=== PATIENT | female | born 1995 | race Two or more races ===

== ENCOUNTER → 2020-04-09 | Outpatient (REF) | payer OTHER ==
[~2020-04-09] MED LIST: FLAG500T PO; HYDR-3713 PO; PHEN15CA PO; TERB250T12
[2020-04-10 19:52] LABS: CHLAMYDIA DNA AMPLIFICATION NEGATIVE (NEGATIVE); GC DNA AMPLIFICATION NEGATIVE (NEGATIVE)
== END ==
LOC: M SFHCLERA 15:48
PROVIDERS: ATTEND Student in an Organized Health Care Education/Training Program
DX: R10.2 Pelvic and perineal pain (principal)

== ENCOUNTER 2020-04-10 14:44 | Emergency (ER) | payer OTHER, SELFPAY ==
[~2020-04-10] VITALS: Ht 149.9 cm; Wt 69.2 kg
[2020-04-10] MEDS ORDERED: TERB250T12 (14:53)
[2020-04-10] MEDS ORDERED: PHEN15CA PO (14:53)
[2020-04-10 16:08] LABS: BASO # 0.1 10^3/uL (0.0-0.2); BASO % 0.6 % (0.0-1.0); EOS # 0.1 10^3/uL (0.0-0.5); EOS % 1.3 % (0.0-3.0); HEMATOCRIT 47.2 % (36.0-47.0); HEMOGLOBIN 15.2 g/dl (12.0-15.5); LYMPH # 2.3 10^3/uL (1.5-5.0); LYMPH % 29.4 % (24.0-44.0); MEAN CORPUSCULAR HGB CONC 32.2 g/dl (32.0-36.5); MEAN CORPUSCULAR VOLUME 89.9 fl (80.0-96.0); MONO # 0.5 10^3/uL (0.0-0.8); MONO % 5.8 % (0.0-5.0); NEUTROPHILS # 4.8 10^3/uL (1.5-8.5); NEUTROPHILS % 62.6 % (36.0-66.0); PLATELET COUNT, AUTOMATED 261 10^3/uL (150-450); RED BLOOD COUNT 5.25 10^6/uL (4.00-5.40); WHITE BLOOD COUNT 7.7 10^3/uL (4.0-10.0)
--- OUTSIDE RECORDS SUMMARY | 2020-04-10 16:23 | CCD ---
Author Author [facility] Organization [facility] Address Unknown Phone Unavailable Care Team Providers Care Lens Assorter Name Role Phone Mya, Cinthia Unavailable PROBLEMS Type Condition ICD9-CM Code [id number] Code Onset Dates Condition S tatus W/U Status Risk SNOMED Code Notes Problem Body mass index [BMI]30.0-30.9, adult Z68.30 Ac tive confirmed 031073535 Problem Obesity, unspecified E66.9 Active confirmed [id number] ALLERGIES No Known Allergies ENCOUNTERS from 1994 to 2020-04-05 Encounter Location Date Provider Diagnosis [address] [address] Apr, Cinthia Roque IMMUNIZATIONS No Information SOCIAL HISTORY Tobacco Use: Social History Observation Description Date Details (start date - stop date) Never Smoker Sex Assigned At : Social History Observation Description Sex Assigned At Unknown Education: Question Answer Notes Level of Education: College Audit Question Answer Notes Total Score: 1 Interpretation: Alcohol Education Language: Question Answer Notes Languages spoken: Sami Congregational: Question Answer Notes Congregational 33 None Sexual Hx: Question Answer Notes Had sex in the last 12 months (vaginal, oral, or anal)? Yes LMP: 2017 Have you ever had an STD? No with Men only Use protection? No Drug and Alcohol Question Answer Notes Total Score: 0 Interpretation: No problems reported Tobacco Use: Question Answer Notes Are you a: never smoker REASON FOR REFERRAL No Information VITAL SIGNS No information MEDICATIONS Medication SIG (Take, Route, Frequency, Duration) Notes Start Da te End Date Status Phentermine HCl 15 MG 1 capsule Orally Once a day for 30 days Jan, Active Mirena Active Lamisil 250 MG 1 tablet with food Orally Once a day for 42 day( s) Apr, Active PROCEDURES No Information RESULTS No Results REASON FOR VISIT Pain MEDICAL (GENERAL) HISTORY Type Description Date Surgical History No know Surgical history Goals Section No Information Health Concerns No Information MEDICAL EQUIPMENT No Information MENTAL STATUS No Information FUNCTIONAL STATUS No Information ASSESSMENTS No Information PLAN OF TREATMENT Medication Medication Name Sig Start Date Stop Date Lamisil 250 MG 1 tablet with food Orally Once a day for 42 day( s) Apr, Insurance Providers Payer Name Payer Address Payer Phone Insured Name Patient Relati onship to Insured Coverage Start Date Coverage End Date [address] [phone] YENY OROZCO
--- OUTSIDE RECORDS SUMMARY | 2020-04-10 16:23 | CCD ---
Author Author [facility] Organization [facility] Address Unknown Phone Unavailable Support Name Relationship Address Phone YENY OROZCO Next Of Kin [address] [place] [address] YENY OROZCO E[place] [address] [place] [address] Unavailable Re-disclosure Warning The records that you are about to access may contain information from federally-assisted alcohol or drug abuse programs. If such information is present, then the following federally mandated warning applies: This information has been disclosed to you from records protected by federal confidentiality rules (42 CFR part 2). The federal rules prohibit you from making any further disclosure of this information unless further disclosure is expressly permitted by the written consent of the person to whom it pertains or as otherwise permitted by 42 CFR part 2. A general authorization for the release of medical or other information is NOT sufficient for this purpose. The Federal rules restrict any use of the information to criminally investigate or prosecute any alcohol or drug abuse patient.The records that you are about to access may contain highly sensitive health information, the redisclosure of which is protected by Article 27-F of the [facility] Public Health law. If you continue you may have access to information: Regarding HIV / AIDS; Provided by facilities licensed or operated by the [facility] Office of Mental Health; or Provided by the [facility] Office for People With Developmental Disabilities. If such information is present, then the following [facility] mandated warning applies: This information has been disclosed to you from confidential records which are protected by state law. State law prohibits you from making any further disclosure of this information without the specific written consent of the person to whom it pertains, or as otherwise permitted by law. Any unauthorized further disclosure in violation of state law may result in a fine or assisted sentence or both. A general authorization for the release of medical or other information is NOT sufficient authorization for further disc losure. Encounters Encounter Providers Location Date Indications Data Source(s ) Unknown [address] [facility] [place] [address] 04/04/2020 12:00:00 AM EST eCW1 (Critical access hospital) Unknown [address] [facility] [place] [address] 03/29/2020 12:00:00 AM EST eCW1 (Critical access hospital) Outpatient [address] [facility] [place] [address] 02/13/2020 12:00:00 AM EST eCW1 (Critical access hospital) Medications Medication Brand Name Start Date Product Form Dose Route Admi nistrative Instructions Pharmacy Instructions Status Indications Reaction Description Data Source(s) Lamisil 250 MG UNK 04/05/2020 12:00:00 AM EST 1.0 {tablet_wi th_food} active Lamisil 250 MG eCW1 ([facility]) Phentermine Hydrochloride 15 MG Oral Capsule Phentermi ne HCl 15 MG Phentermine HCl 15 MG 02/13/2020 12:00:00 AM EST 1.0 {capsule} a ctive Phentermine HCl 15 MG eCW1 ([facility]) Phentermine Hydrochloride 15 MG Oral Capsule Phentermi ne HCl 15 MG Phentermine HCl 15 MG 02/13/2020 12:00:00 AM EST 1.0 {capsule} a ctive Phentermine HCl 15 MG eCW1 ([facility]) Phentermine Hydrochloride 15 MG Oral Capsule Phentermi ne HCl 15 MG Phentermine HCl 15 MG 02/13/2020 12:00:00 AM EST 1.0 {capsule} a ctive Phentermine HCl 15 MG eCW1 ([facility]) Insurance Providers Payer name Policy type / Coverage type Policy ID Covered democrat ID Covered democrat's relationship to gottlieb Policy Gottlieb Plan Information [facility] [id number] [facility] [id number] Problems, Conditions, and Diagnoses Code Display Name Description Problem Type Effective Dates Data Source(s) E66.9 [id number] Obesity, unspecified Problem 02/13/2020 12:0 0:00 AM EST eCW1 ([facility]) Z68.30 [id number] Body mass index [BMI]30.0-30.9, adult Pro blem 02/13/2020 12:00:00 AM EST eCW1 ([facility]) Social History Code Duration Value Status Description Data Source(s ) Smoking 04/05/2020 12:00:00 AM EST Never Smoker completed Never S moker eCW1 ([facility]) Smoking 02/13/2020 12:00:00 AM EST Never Smoker completed Never S moker eCW1 ([facility]) Smoking 02/13/2020 12:00:00 AM EST Never Smoker completed Never S moker eCW1 ([facility]) Vital Signs ID Date Data Source UNK Name Value Range Interpretation Code Description Data Source(s) Diastolic blood pressure 74 mm[Hg] 74 mm[Hg] eCW1 ([facility]) Systolic blood pressure 127 mm[Hg] 127 mm[Hg] e CW1 ([facility]) Body temperature 98.1 [degF] 98.1 [degF] eCW1 ( [facility]) Respiratory rate 18 /min 18 /min eCW1 ([facility]) Heart rate 66 /min 66 /min eCW1 ([facility]) Body mass index (BMI) [Ratio] 30.21 kg/m2 30.21 kg/m2 eCW1 ([facility]) Body height 59 [in_i] 59 [in_i] eCW1 ([facility]) Body weight 149.6 [lb_av] 149.6 [lb_av] eCW1 ([facility]) Patient Treatment Plan of Care Planned Activity Planned Date Details Description Data Source (s) Lamisil 250 MG 04/05/2020 12:00:00 AM EST eCW1 ([facility]) Phentermine Hydrochloride 15 MG Oral Capsule 02/13/2020 12:00:00 AM EST eCW1 ([facility]) Phentermine Hydrochloride 15 MG Oral Capsule 02/13/2020 12:00:00 AM EST eCW1 ([facility])
--- OUTSIDE RECORDS SUMMARY | 2020-04-10 16:23 | CCD ---
Author Author [facility] Organization [facility] Address Unknown Phone Unavailable Care Team Providers Care Storage Battery Inspector Name Role Phone Cinthia Roque Unavailable PROBLEMS Type Condition ICD9-CM Code [id number] Code Onset Dates Condition S tatus SNOMED Code Notes Problem Body mass index [BMI]30.0-30.9, adult Z68.30 Ac tive [id number] Problem Obesity, unspecified E66.9 Active [id number] ALLERGIES No Known Allergies ENCOUNTERS from 1994 to 2020-03-30 Encounter Location Date Provider Diagnosis [facility] [address] [place] [address], Cinthia Salasullon Obesity, unspecified E66.9 IMMUNIZATIONS No Information SOCIAL HISTORY Tobacco Use: Social History Observation Description Date Details (start date - stop date) Never Smoker Sex Assigned At : Social History Observation Description Sex Assigned At Unknown Education: Question Answer Notes Level of Education: College Audit Question Answer Notes Total Score: 1 Interpretation: Alcohol Education Language: Question Answer Notes Languages spoken: Thai Adventist: Question Answer Notes Adventist 33 None Sexual Hx: Question Answer Notes [...] for 30 days Jan, Active Mirena Active PROCEDURES No Information RESULTS No Results REASON FOR VISIT REFILL MEDICAL (GENERAL) HISTORY Type Description Date Surgical History No know Surgical history Goals Section No Information Health Concerns No Information MEDICAL EQUIPMENT No Information MENTAL STATUS No Information FUNCTIONAL STATUS No Information ASSESSMENTS Encounter Date Diagnosis Assessment Notes Treatment Notes Treatm ent Clinical Notes Mar, Obesity, unspecified (ICD-10 - E66.9) PLAN OF TREATMENT Medication Medication Name Sig Start Date Stop Date Phentermine HCl 15 MG 1 capsule Orally Once a day for 30 days Jan, Next Appt Details Provider Name:Cinthia Roque, 2020-04-03 03:00:00 PM, [address] [place], [address], Insurance Providers Payer Name Payer Address Payer Phone Insured Name Patient Relati onship to Insured Coverage Start Date Coverage End Date [address] [phone] YENY OROZCO
--- OUTSIDE RECORDS SUMMARY | 2020-04-10 16:23 | CCD ---
Author Author [facility] Organization [facility] Address Unknown Phone Unavailable Care Team Providers Care Geophysical Prospecting Permit Agent Name Role Phone Cinthia Roque Unavailable PROBLEMS Type Condition ICD9-CM Code [id number] Code Onset Dates Condition S tatus SNOMED Code Notes Problem Body mass index [BMI]30.0-30.9, adult Z68.30 Ac tive [id number] Problem Obesity, unspecified E66.9 Active [id number] ALLERGIES No Known Allergies ENCOUNTERS from 1994 to 2020-02-14 Encounter Location Date Provider Diagnosis [facility] [address] [place] [address] Jan, Cinthia Roque Encounter for medical examination to [facility] Z00.00 ; Obesity, unspecified E66.9 ; Body mass index [BMI]30.0-30.9, adult Z68.30 and Refused influenza vaccine Z28.21 IMMUNIZATIONS No Information SOCIAL HISTORY Tobacco Use: Social History Observation Description Date Details (start date - stop date) Never Smoker Sex Assigned At : Social History Observation Description Sex Assigned At Unknown Education: Question Answer Notes Level of Education: College Audit Question Answer Notes Total Score: 1 Interpretation: Alcohol Education Language: Question Answer Notes Languages spoken: Namibian Gnosticist: Question Answer Notes Gnosticist 33 None Sexual Hx: Question Answer Notes [...] REASON FOR REFERRAL No Information VITAL SIGNS Weight 149.6 lbs Jan, Height 59 in Jan, BMI 30.21 kg/m2 Jan, Heart Rate 66 /min Jan, Respiratory Rate 18 /min Jan, Temperature 98.1 degrees Fahrenheit Jan, Oximetry 98 Jan, Blood pressure systolic 127 mm Hg Jan, Blood pressure diastolic 74 mm Hg Jan, MEDICATIONS Medication SIG (Take, Route, Frequency, Duration) Notes Start Da te End Date Status Phentermine HCl 15 MG 1 capsule Orally Once a day for 30 days Jan, Active Mirena Active PROCEDURES No Information RESULTS No Results REASON FOR VISIT ESTABLISH CARE, trying to lose weight MEDICAL (GENERAL) HISTORY Type Description Date Surgical History No know Surgical history Goals Section No Information Health Concerns No Information MEDICAL EQUIPMENT No Information MENTAL STATUS No Information FUNCTIONAL STATUS No Information ASSESSMENTS Encounter Date Diagnosis Assessment Notes Treatment Notes Treatm ent Clinical Notes Jan, Encounter for medical examin ation to establish care (ICD-10 - Z00.00) Jan, Obesity, unspecified (ICD-10 - E66.9) WHOLESALE MANAGER Reference #: [id number]; no previous controlled substance scripts found. 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 Patient was counseled on the importance of maintaining a normal weight. Patient was advised to increase physical activity and avoid processed (fatty foods/high in salt) foods to encourage weight loss which can lead to an improvement in overall health. Was counseled on calorie counting as well. Patient inquired about phentermine to help with weight loss. I counseled patient that scripts for this med are temporary and I will not prescribe any longer than 12 weeks of this medication because it is not meant for long-term use. Patient expressed understanding and agreed with plan. Advised follow up in 1 month to monitor weight loss progress and determine if another 30-day supply will be given of the phentermine. Jan, Body mass index [BMI]30.0-30.9, adult (ICD-10 - Z68.30) Jan, Refused influenza vaccine (ICD-10 - Z28.21) Pt refused flu shot today. Jan, Other Was advised to make an appt at her earliest convenience for a pap smear screening since she is due at this time. 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 Patient was counseled on the importance of maintaining a normal weight. Patient was advised to increase physical activity and avoid processed (fatty foods/high in salt) foods to encourage weight loss which can lead to an improvement in overall health. Was counseled on calorie counting as well. Patient inquired about phentermine to help with weight loss. I counseled patient that scripts for this med are temporary and I will not prescribe any longer than 12 weeks of this medication because it is not meant for long-term use. Patient expressed understanding and agreed with plan. Advised follow up in 1 month to monitor weight loss progress and determine if another 30-day supply will be given of the phentermine. Refused influenza vaccine Pt refused flu shot today. Next Appt Details 4 Weeks Reason:weight loss/phentermine s cript Follow Up:4 Weeksweight loss/phentermine script Insurance Providers Payer Name Payer Address Payer Phone Insured Name Patient Relati onship to Insured Coverage Start Date Coverage End Date [place] [phone] YENY OROZCO
[2020-04-10 16:29] LABS: BLOOD UREA NITROGEN 7 MG/DL (7-18); CALCIUM LEVEL 9.6 MG/DL (8.5-10.1); CARBON DIOXIDE LEVEL 29 MEQ/L (21-32); CHLORIDE LEVEL 102 MEQ/L (98-107); GLOMERULAR FILTRATION RATE > 60.0 (>60); GLUCOSE, FASTING 87 MG/DL (70-100); POTASSIUM SERUM 4.1 MEQ/L (3.5-5.1); SODIUM LEVEL 138 MEQ/L (136-145)
--- OUTSIDE RECORDS SUMMARY | 2020-04-10 16:47 | CCD ---
Author Author [facility] Organization [facility] Address Unknown Phone Unavailable Support Name Relationship Address Phone [employer] Next Of Kin [address] [place] [address] YENY OROZCO Next Of Kin [address] [facility], [place] [address] YENY OROZCO ECON [address] [place] [address] Unavailable Re-disclosure Warning The records that you [...] is protected by Article 27-F of the [facility] Public Health law. If you continue you may have access to information: Regarding HIV / AIDS; Provided by facilities licensed or operated by the [facility] Office of Mental Health; or Provided by the [facility] Office for People With Developmental Disabilities. If such information is present, then the following [facility] mandated warning applies: This information [...] law may result in a fine or usp sentence or both. A general authorization for the release of medical or other information is NOT sufficient authorization for further disc losure. Encounters Encounter Providers Location Date Indications Data Source(s ) Unknown [address] [facility] [place] [address] 04/04/2020 12:00:00 AM EST eCW1 ([facility]) Unknown [address] [facility] [place] [address] 03/29/2020 12:00:00 AM EST eCW1 ([facility]) Outpatient [address] [facility] [place] [address] 02/13/2020 12:00:00 AM EST eCW1 ([facility]) Medications Medication Brand Name Start Date Product Form Dose Route Admi nistrative Instructions Pharmacy Instructions Status Indications Reaction Description Data Source(s) Lamisil 250 MG UNK 04/05/2020 12:00:00 AM EST 1.0 {tablet_wi th_food} active Lamisil 250 MG eCW1 ([facility]) Phentermine Hydrochloride 15 MG Oral Capsule Phentermi ne HCl 15 MG Phentermine HCl 15 MG 02/13/2020 12:00:00 AM EST 1.0 {capsule} a ctive Phentermine HCl 15 MG eCW1 ([facility]) Phentermine Hydrochloride 15 MG Oral Capsule Phentermi ne HCl 15 MG Phentermine HCl 15 MG 02/13/2020 12:00:00 AM EST 1.0 {capsule} a ctive Phentermine HCl 15 MG eCW1 ([facility]) Phentermine Hydrochloride 15 MG Oral Capsule Phentermi ne HCl 15 MG Phentermine HCl 15 MG 02/13/2020 12:00:00 AM EST 1.0 {capsule} a ctive Phentermine HCl 15 MG eCW1 ([facility]) Insurance Providers Payer name Policy type / Coverage type Policy ID Covered democrat ID Covered democrat's relationship to gottlieb Policy Gottlieb Plan Information [facility] [id number] [facility] [id number] Problems, Conditions, and Diagnoses Code Display Name Description Problem Type Effective Dates Data Source(s) E66.9 [id number] Obesity, unspecified Problem 02/13/2020 12:0 0:00 AM EST eCW1 ([facility]) Z68.30 [id number] Body mass index [BMI]30.0-30.9, adult Pro blem 02/13/2020 12:00:00 AM EST eCW1 ([facility]) Social History Code Duration Value Status Description Data Source(s ) Smoking 04/05/2020 12:00:00 AM EST Never Smoker completed Never S moker eCW1 ([facility]) Smoking 02/13/2020 12:00:00 AM EST Never Smoker completed Never S moker eCW1 ([facility]) Smoking 02/13/2020 12:00:00 AM EST Never Smoker completed Never S moker eCW1 ([facility]) Vital Signs ID Date Data Source UNK Name Value Range Interpretation Code Description Data Source(s) Diastolic blood pressure 74 mm[Hg] 74 mm[Hg] eCW1 ([facility]) Systolic blood pressure 127 mm[Hg] 127 mm[Hg] e CW1 ([facility]) Body temperature 98.1 [degF] 98.1 [degF] eCW1 ( [facility]) Respiratory rate 18 /min 18 /min eCW1 ([facility]) Heart rate 66 /min 66 /min eCW1 ([facility]) Body mass index (BMI) [Ratio] 30.21 kg/m2 30.21 kg/m2 eCW1 ([facility]) Body height 59 [in_i] 59 [in_i] eCW1 ([facility]) Body weight 149.6 [lb_av] 149.6 [lb_av] eCW1 ([facility]) Patient Treatment Plan of Care Planned Activity Planned Date Details Description Data Source (s) Lamisil 250 MG 04/05/2020 12:00:00 AM EST eCW1 ([facility]) Phentermine Hydrochloride 15 MG Oral Capsule 02/13/2020 12:00:00 AM EST eCW1 ([facility]) Phentermine Hydrochloride 15 MG Oral Capsule 02/13/2020 12:00:00 AM EST eCW1 ([facility])
--- NOTE | 2020-04-10 17:41 | REPVR ---
PROCEDURE INFORMATION: Exam: US Nonobstetric Pelvis; Complete Exam date and time: 04/10/2020 4:54 PM Age: 24 years old Clinical indication: Pelvic pain; Additional info: Pelvic discomfort TECHNIQUE: Imaging protocol: Transabdominal pelvic nonobstetric ultrasound. Complete exam. Real time ultrasound with image documentation. COMPARISON: No relevant prior studies available. FINDINGS: Uterus/cervix: The uterus measures 8.3 cm in length by 4.1 cm AP dimension by 4.7 cm transverse and anteverted. An IUD is noted within the endometrial canal. Right adnexa: The right ovary measures 4.5 cm in length by 1.7 cm in thickness and there is vascular flow the right ovary with no evidence of torsion. Intraperitoneal space: There is no evidence of free fluid in the cul-de-sac. Urinary bladder: There is only a small amount of urine in the urinary bladder but appearing smooth. Left ovary: The left ovary is directly posterior to the uterus and contacting the right ovary. The left ovary is enlarged and measures 6.4 cm by 4.7 cm. There is a very large complex cyst within the left ovary measuring 5.5 cm. Within this large cyst is a 3 cm echogenic structure which may represent a conglomerate of clotted blood. There is vascular flow of the left ovary. IMPRESSION: 1. There is an IUD within the uterus. 2. The left ovary is markedly enlarged and directly posterior to the uterus and contacting the right ovary. There is a very large complex cystic structure of the left ovary which measures 5.5 cm and with a central 3 cm echogenic focus probably clotted blood or debris. Electronically signed by: Naldo Norris On 04/10/2020 17:41:46 PM
[2020-04-10 17:47] LABS: CHLAMYDIA DNA AMPLIFICATION NEGATIVE (NEGATIVE); GC DNA AMPLIFICATION NEGATIVE (NEGATIVE)
[2020-04-10] MEDS ORDERED: HYDR-3713 PO (18:18)
[2020-04-10] MEDS ORDERED: FLAG500T PO (18:18)
[2020-04-10 18:34] VITALS: BP 113/76
--- NOTE | 2020-04-11 18:44 | ED PDOC ---
Post-Departure Follow-Up dr jace clifton faxed formal report of pelvic us for fu Kahlil Sanchez MD Apr 11, 2020 18:44
== END 2020-04-10 18:39 | disposition home or self-care (01) ==
LOC: M ED 14:44
DX: N83.202 Unspecified ovarian cyst, left side (principal); N76.0 Acute vaginitis; Z79.899 Other long term (current) drug therapy; Z97.5 Presence of (intrauterine) contraceptive device

== ENCOUNTER → 2020-05-23 | Outpatient (CLI) | payer OTHER ==
--- NOTE | 2020-05-23 18:54 | REP ---
INDICATION: N83.202 LEFT OVARIAN CYST. COMPARISON: 04/10/2020. TECHNIQUE: Transabdominal and transvaginal scanning performed. FINDINGS: Uterine dimensions are 9.0 x 4.5 x 6.0 cm. Endometrial echo is not well visualized due to IUD within the endometrial canal. The bladder measures 6.7 x 7.9 x 4.9cm. The right ovary has dimensions of 3.9 x 2.2 x 3.2 cm. It's Doppler flow is normal with a resistive index of 0.61. The left ovary dimensions are 3.6 x 2.2 x 1.9 cm. It's Doppler flow was normal with resistive index of 0.51. Previously noted complex cyst of the left ovary has resolved. A hypoechoic structure in the left ovary which measures 1.7 x 1.3 x 1.0 cm probably represents a complex dominant follicle. No free fluid is seen in the cul-de-sac. IMPRESSION: Previously noted complex cyst of the left ovary has resolved. A hypoechoic structure in the left ovary which measures 1.7 x 1.3 x 1.0 cm probably represents a complex dominant follicle. <Electronically signed by Billy Bernal > 05/23/20 [id number]
== END ==
LOC: M WHC 13:23
PROVIDERS: ATTEND Obstetrics & Gynecology
DX: N83.202 Unspecified ovarian cyst, left side (principal)

== ENCOUNTER → 2020-09-17 | Outpatient (REF) | payer OTHER | LOC: M SFHCLERA 16:27 | PROVIDERS: ATTEND Nurse Practitioner Family | DX: Z53.9 Procedure and treatment not carried out, unspecified reason (principal); L60.3 Nail dystrophy; R63.5 Abnormal weight gain ==

== ENCOUNTER → 2022-05-05 | Outpatient (REF) | payer OTHER ==
[~2022-05-05] MED LIST changes: -PHEN15CA PO; +PHEN15CA6 PO; -TERB250T12; +TERB250T91
== END ==
LOC: M SFHCWAGY 17:17
PROVIDERS: ATTEND Obstetrics & Gynecology
DX: Z12.4 Encounter for screening for malignant neoplasm of cervix (principal)

== ENCOUNTER 2022-07-26 11:30 | Emergency (ER) | payer OTHER ==
[~2022-07-26] VITALS: Ht 152.4 cm; Wt 74.5 kg
[2022-07-26 13:52] VITALS: BP 124/88
== END 2022-07-26 14:00 | disposition home or self-care (01) ==
LOC: M ED 11:30
DX: S93.402A Sprain of unspecified ligament of left ankle, initial encounter (principal); W18.49XA Other slipping, tripping and stumbling without falling, initial encounter; F41.9 Anxiety disorder, unspecified; F32.A Depression, unspecified; M54.50 Low back pain, unspecified; Z91.048 Other nonmedicinal substance allergy status; Z79.899 Other long term (current) drug therapy